=== PATIENT | male | born 1945 | race African-American/Black ===

== ENCOUNTER 2016-12-02 21:22 | Emergency (ER) | payer BC, MEDICARE ==
[~2016-12-02] VITALS: Ht 190.5 cm; Wt 77.1 kg
[~2016-12-02 21:22] MED LIST: TAMS0.4C97 PO
[2016-12-02 22:00] VITALS: BP 135/78
[2016-12-02 22:24] LABS: BASO # 0.1 x10^3/uL (0.0-0.2); BASO % 1 % (0-3); EOS % 1 % (0-3); HEMATOCRIT 37.6 % (39.0-53.0); HEMOGLOBIN 12.4 g/dL (13.0-17.5); LYMPH # 2.2 x10^3/uL (1.0-4.8); LYMPH % 38 % (24-48); MEAN CORPUSCULAR HEMOGLOBIN 29 pg (25-35); MEAN CORPUSCULAR HGB CONC 33 g/dL (31-37); MEAN CORPUSCULAR VOLUME 87 fL (79-100); MONO % 8 % (0-9); NEUT % 52 % (31-73); PLATELET COUNT 303 x10^3/uL (140-400); RED CELL DISTRIBUTION WIDTH 13.8 % (11.5-14.5); WHITE BLOOD COUNT 5.9 x10^3/uL (4.0-11.0)
[2016-12-02] MEDS ORDERED: ASPIRIN ENTERIC COATED 325 MG TABLET.DR. PO ONE (22:30)
[2016-12-02 22:31] LABS: BILIRUBIN,URINE NEGATIVE (NEG); GLUCOSE,URINE NEGATIVE (NEG); NITRITE,URINE NEGATIVE (NEG); PH,URINE 5.5; PROTEIN,URINE NEGATIVE (NEG-TRACE); UROBILINOGEN,URINE 0.2 mg/dL (0.2 mg/dL)
[2016-12-02 22:32] LABS: CALCIUM 8.4 mg/dL (8.5-10.1); CREATININE 1.2 mg/dL (0.7-1.3); GFR 71.8; POTASSIUM 3.5 mmol/L (3.5-5.1)
[2016-12-02] MEDS ORDERED: ASPI-482 PO (22:34)
[2016-12-02 22:36] LABS: BARBITURATES NEG (NEG); BENZODIAZEPINES NEG (NEG); CANNABINOIDS POS (NEG); COCAINE NEG (NEG); METHADONE NEG (NEG); OPIATES NEG (NEG); PHENCYCLIDINE NEG (NEG)
[2016-12-02 22:37] LABS: BACTERIA,URINE 0 /HPF (0-FEW); RBC,URINE 0 /HPF (0-2)
--- NOTE | 2016-12-02 22:37 | PHYS DOC ---
Past Medical History Past Medical History: No Pertinent History Past Surgical History: No Surgical History Alcohol Use: Occasionally Drug Use: Marijuana Adult General Chief Complaint Chief Complaint: NEURO SYMPTOMS/DEFICITS HPI HPI 71-year-old male presenting to the emergency department today after having an episode where he had right facial drooping with slurred speech around 1830. His is here with him today and reports that he had been drinking and using marijuana prior to this. They were concerned that maybe he was having a small stroke. Upon arrival to the emergency department all of the symptoms had improved and he currently is asymptomatic. He denies having hypertension diabetes high cholesterol or a history of stroke. He denies having symptoms like this previously. He denies having any weakness in his upper or lower extremities at the time. Location brain. Duration intermittent. No alleviating or exacerbating factors. Review of systems is negative for chest pain shortness of breath fevers chills cough. He denies abdominal pain nausea vomiting. He denies neck stiffness. All other review of systems is negative unless otherwise noted in history of present illness. Pertinent physical exam findings: Mental status: Awake oriented and alert x3 Cranial nerves: Extraocular movements intact, eyebrows katharina bilaterally smile symmetric, uvula elevation, shoulder shrug intact, tongue protrusion normal DTRs: 2+ Sensation: equal and normal in all extremities Strength: 5/5 in upper and lower extremities bilaterally ED course: 71-year-old male presenting to the emergency department today with strokelike symptoms. The patient's neurologic exam was nonfocal in our emergency department. CT head obtained and unremarkable. CBC and chemistry panel unremarkable. I had a long risk-benefit discussion with the patient about transient ischemic attack. I recommended that the patient receive workup for a TIA. The patient strongly desires not to be admitted to the hospital. I felt that the patient could get a TIA workup in the outpatient setting. ABCD2 score of 2. I recommended he follow up with his primary care physician for an outpatient duplex of the neck vasculature and echocardiogram. I gave the patient dose of aspirin in the emergency department and prescribed aspirin to go home with until he follows up with his PCP either tomorrow or the day after. The patient was then discharged home in stable condition to follow up with their primary care physician over the next 2-3 days. They were to return if their symptoms worsened or if they were concerned for any reason. [id number] discharge instructions and return precautions were given. Patient's questions were answered to their satisfaction. Patient is comfortable plan. Review of Systems Review of Systems SEE ABOVE. Current Medications Current Medications Current Medications Medications (Trade) Dose Ordered Sig/Luis Enrique Start Time Stop Time Status Last Admin Dose Admin Aspirin (Ecotrin) 325 mg 1X ONCE 12/02/16 22:30 12/02/16 22:31 DC 12/02/16 22:22 325 MG Allergies Allergies Allergies Coded Allergies Type Severity Reaction Last Updated Verified No Known Drug Allergies 06/16/15 No Physical Exam Physical Exam Constitutional: Well developed, well nourished, no acute distress, non-toxic appearance. [] HENT: Normocephalic, atraumatic, bilateral external ears normal, oropharynx moist, no oral exudates, nose normal. [] Eyes: PERRLA, EOMI, conjunctiva normal, no discharge. [] Neck: Normal range of motion, no tenderness, supple, no stridor. [] Cardiovascular:Heart rate regular rhythm, no murmur [] Lungs & Thorax: Bilateral breath sounds clear to auscultation [] Abdomen: Bowel sounds normal, soft, no tenderness, no masses, no pulsatile masses. [] Skin: Warm, dry, no erythema, no rash. [] Back: No tenderness, no CVA tenderness. [] Extremities: No tenderness, no cyanosis, no clubbing, ROM intact, no edema. [] Neurologic: see above Psychologic: Affect normal, judgement normal, mood normal. [] Current Patient Data Vital Signs Vital Signs Date Time Temp Pulse Resp B/P (MAP) Pulse Ox O2 Delivery O2 Flow Rate FiO2 12/02/16 21:25 98.3 84 16 134/80 (98) 98 Room Air 98.3 Lab Values Laboratory Tests Test 12/02/16 22:15 12/02/16 22:23 White Blood Count 5.9 x10^3/uL (4.0-11.0) Red Blood Count 4.30 x10^6/uL (4.30-5.70) Hemoglobin 12.4 g/dL (13.0-17.5) L Hematocrit 37.6 % (39.0-53.0) L Mean Corpuscular Volume 87 fL (79-100) Mean Corpuscular Hemoglobin 29 pg (25-35) Mean Corpuscular Hemoglobin Concent 33 g/dL (31-37) Red Cell Distribution Width 13.8 % (11.5-14.5) Platelet Count 303 x10^3/uL (140-400) Neutrophils (%) (Auto) 52 % (31-73) Lymphocytes (%) (Auto) 38 % (24-48) Monocytes (%) (Auto) 8 % (0-9) Eosinophils (%) (Auto) 1 % (0-3) Basophils (%) (Auto) 1 % (0-3) Neutrophils # (Auto) 3.1 x10^3uL (1.8-7.7) Lymphocytes # (Auto) 2.2 x10^3/uL (1.0-4.8) Monocytes # (Auto) 0.5 x10^3/uL (0.0-1.1) Eosinophils # (Auto) 0.1 x10^3/uL (0.0-0.7) Basophils # (Auto) 0.1 x10^3/uL (0.0-0.2) Sodium Level 139 mmol/L (136-145) Potassium Level 3.5 mmol/L (3.5-5.1) Chloride Level 104 mmol/L (98-107) Carbon Dioxide Level 24 mmol/L (21-32) Anion Gap 11 (6-14) Blood Urea Nitrogen 11 mg/dL (8-26) Creatinine 1.2 mg/dL (0.7-1.3) Estimated GFR (Cockcroft-Gault) 71.8 Glucose Level 88 mg/dL (70-99) Calcium Level 8.4 mg/dL (8.5-10.1) L Urine Collection Type Unknown Urine Color Yellow Urine Clarity Clear Urine pH 5.5 Urine Specific Blair 1.020 Urine Protein Negative mg/dL (NEG-TRACE) Urine Glucose (UA) Negative mg/dL (NEG) Urine Ketones (Stick) Negative mg/dL (NEG) Urine Blood Negative (NEG) Urine Nitrite Negative (NEG) Urine Bilirubin Negative (NEG) Urine Urobilinogen Dipstick 0.2 mg/dL (0.2 mg/dL) Urine Leukocyte Esterase Negative (NEG) Urine RBC 0 /HPF (0-2) Urine WBC 1-4 /HPF (0-4) Urine Bacteria 0 /HPF (0-FEW) Urine Mucus Mod /LPF Urine Opiates Screen Neg (NEG) Urine Methadone Screen Neg (NEG) Urine Barbiturates Neg (NEG) Urine Phencyclidine Screen Neg (NEG) Urine Amphetamine/Methamphetamine Neg (NEG) Urine Benzodiazepines Screen Neg (NEG) Urine Cocaine Screen Neg (NEG) Urine Cannabinoids Screen Pos (NEG) Urine Ethyl Alcohol Pos (NEG) Laboratory Tests 12/02/16 22:15 Laboratory Tests 12/02/16 22:15 EKG EKG EKG shows sinus rhythm with regular rate. prolonged pr interval. Normal axis. ST segments are congruent. Not suggestive of ACS. Reviewed by myself.[] Radiology/Procedures Radiology/Procedures [] Course & Med Decision Making Course & Med Decision Making Pertinent Labs and Imaging studies reviewed. (See chart for details) [] Dragon Disclaimer Dragon Disclaimer This electronic medical record was generated, in whole or in part, using a voice recognition dictation system. Departure Departure Impression: Primary Impression: TIA (transient ischemic attack) Disposition: HOME, SELF-CARE Condition: STABLE Referrals: NO PCP (PCP) AKRLOS HESS MD, FERILYN MD Patient Instructions: Transient Ischemic Attack, [id number] Additional Instructions: Thank you for allowing us to participate in your care today. You will need an ultrasound of the heart and neck. I recommend you follow-up with your primary care physician and a neurologist within the next week. Followup with your primary care physician in 1-2 days if your symptoms do not improve. If you do not have a primary care provider you can ask for a list of our primary care providers. Return to the emergency department you have any new or concerning findings. This should be evaluated by the primary care physician and any necessary consulting services for continued management within a few days after discharge. Return to emergency room if you have any new or concerning symptoms including but not limited to fever, chills, nausea, vomiting, intractable pain, any new rashes, chest pain, shortness of air, uncontrolled bleeding, difficulty breathing, and/or vision loss. Scripts Aspirin (ASPIR 81) 81 Mg Tablet.dr 1 TAB PO DAILY, #7 TAB 0 Refills Prov: ROWDY GUNN MD 12/02/16 Problem Qualifiers Primary Impression: TIA (transient ischemic attack) Transient cerebral ischemia type: unspecified Qualified Codes: G45.9 - Transient cerebral ischemic attack, unspecified ROWDY GUNN MD Dec 02, 2016 22:37
--- NOTE | 2016-12-02 22:47 | RAD ---
CT HEAD WO CONTRAST Clinical indications: TIA SYMPTOMS RIGHT SIDED FACIAL DROOP; SLURRED SPEECH SINCE 1830 NO SURGERIES/PREV COMPARISON: None available. Technique: Noncontrast axial cross sectional scanning of the head was performed. PQRS compliance Statement One or more of the following individualized dose reduction techniques were utilized for this study: 1. Automated exposure control 2. Adjustment of the mA and/or kV according to patient size 3. Use of iterative reconstruction technique Findings: No acute intracranial hemorrhage or midline shift or mass-effect or hydrocephalus or extra-axial fluid collection is seen. No focal hypodense area or sulci effacement is seen to indicate an acute infarct or edema radiographically. No skull fracture or pneumocephalus is seen. No opacification of the mastoid sinuses or the paranasal sinuses is seen. The maxillary sinuses are not completely seen in this study. Impression: No acute intracranial abnormality is seen. Electronically signed by: Ethan Sanchez MD (12/02/2016 10:44 PM)
--- NOTE | 2016-12-03 10:55 | EKG ---
[facility] [address] [place] [address] Test Date: 2016-12-02 Test Time: 21:31:42 Pat Name: CHETAN NIÑO Department: Room: Gender: M Applications Programmer: : [id number] Requested By: ROWDY GUNN Order Number: [id number] Reading MD: Sandra Newton Measurements Intervals [place] Rate: 58 P: 51 [place]: 228 QRS: 51 QRSD: 90 T: 65 QT: 424 QTc: 420 Interpretive Statements SINUS RHYTHM PROLONGED [place] INTERVAL QRS(T) CONTOUR ABNORMALITY CANNOT RULE OUT ANTEROSEPTAL MYOCARDIAL DAMAGE RI6.01 Unconfirmed report No previous ECG available for comparison Electronically Signed On 12-03-2016 19:43:00 CDT by Sandra Newton
== END 2016-12-02 23:12 | disposition home or self-care (01) ==
LOC: ER 21:22
DX: G45.9 Transient cerebral ischemic attack, unspecified (principal); F12.10 Cannabis abuse, uncomplicated
CPT/HCPCS: 36415; 70450; 80048; 80305; 80320; 81001; 85027; 93005; G0481; 99285-25

== ENCOUNTER → 2017-01-02 | Outpatient (CLI) | payer BC ==
[~2017-01-02] MED LIST changes: +ASPI-482 PO
== END | disposition home or self-care (01) ==
LOC: LAB 15:29
PROVIDERS: ATTEND Psychiatry & Neurology Neurology
DX: G45.9 Transient cerebral ischemic attack, unspecified (principal)
CPT/HCPCS: 36415; 82607; 84443